=== PATIENT | male | born 1945 | race Caucasian/White ===

== ENCOUNTER → 2016-10-16 | Day surgery (SDC) | payer OTHER ==
[~2016-10-16] VITALS: Ht 167.6 cm; Wt 75.1 kg
[~2016-10-16] MED LIST: ACETAMINOPHEN 1000 MG/100 ML VIAL IV ONE; ATOR10TA15 PO; CEFT2INJ IV; DO NOT ADM ANY ANTICOAGULANT DRUGS XX PRN; EPIN1INJ21 IV PUSH; EPIN1INJ21 SQ; INSULIN HUMAN REGULAR 1,000 UNITS/10 ML VIAL SQ PRN; LACTATED RINGER'S 1000 ML IV SCH; LEVA500T PO; LEVO500T3 PO; LEVOFLOXACIN 500 MG PREMIX INJ 100 ML IV SCH; LORA-361 PO; METO25TA3 PO; METOPROLOL TARTRATE 25 MG TAB PO PRN; ONDANSETRON HCL 4 MG/2 ML VIAL IV PUSH PRN; PROPOFOL 200 MG/20 ML AMP IV ONE; REFR0.5D4 EACH EYE; SODIUM CHLORID 0.9% 500 ML IV SCH; SOLU250I IV PUSH; TAMS5CAP PO; oxyCODONE/ACETAMINOPHEN 5 MG/325 MG TAB PO PRN
[2016-10-16 06:54] VITALS: BP 131/74; PULSE 53; RESP 16; TEMP 97.7; O2SAT 97
[2016-10-16 07:08] LABS: AUTOMATED NEUTROPHIL # 3.8 TH/MM3 (1.8-7.7); BASOPHIL % 0.5 % (0.0-2.0); EOSINOPHIL # 0.2 TH/MM3 (0-0.4); EOSINOPHIL % 3.3 % (0.0-4.0); HEMATOCRIT 40.1 % (39.0-51.0); HEMO FLAGS DIFF FINAL; LYMPH % 30.6 % (9.0-44.0); LYMPHOCYTE # 2.1 TH/MM3 (1.0-4.8); MEAN CELL VOLUME 88.4 FL (80.0-100.0); MEAN CORPUSCULAR HEMOGLOBIN 30.7 PG (27.0-34.0); MEAN CORPUSCULAR HGB CONC 34.7 % (32.0-36.0); MONO % 9.3 % (0.0-8.0); NEUT % 56.3 % (16.0-70.0); PLATELET COUNT 147 TH/MM3 (150-450); RED BLOOD COUNT 4.53 MIL/MM3 (4.50-5.90); RED CELL DISTRIBUTION WIDTH 13.7 % (11.6-17.2); WHITE BLOOD COUNT 6.8 TH/MM3 (4.0-11.0)
[2016-10-16 10:15] VITALS: BP 142/83; PULSE 53; RESP 16; TEMP 97; O2SAT 98
--- NOTE | 2016-10-21 11:05 | MP ---
cc: HIGINIO TAN MD DATE OF SURGERY: 10/16/2016 INDICATION FOR PROCEDURE This is the case of a pleasant 71-year-old gentleman with PSA elevation measuring 6.9 and induration of his prostate involving the left side on digital rectal exam. The patient presents today for a transrectal ultrasound and transrectal ultrasound-guided needle biopsies of the prostate to rule out prostate cancer PREOPERATIVE DIAGNOSIS PSA elevation. POSTOPERATIVE DIAGNOSIS PSA elevation. 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 PROCEDURES PERFORMED Transrectal ultrasound of the prostate and transrectal ultrasound-guided needle biopsies of the prostate x12. COMPLICATIONS None. ESTIMATED BLOOD LOSS None. SPECIMENS 12 needle biopsies of the prostate sent off to pathology. OPERATIVE PROCEDURE IN DETAIL The patient was brought to the operating room suite and left on the stretcher. He was then placed under general anesthesia. He was then repositioned in the left lateral recumbent position. After an appropriate timeout was undertaken I proceeded with performing a transrectal ultrasound of the prostate. Multiple images of the prostate were taken. The total volume was 36 cc. There were no hypoechoic areas noted. There was a nodular appearance to the left apex as felt on digital rectal exam. I then proceeded with 12 needle biopsies of the prostate utilizing ultrasound guidance. I initially started on the right side. Two biopsies were taken from the right base, two biopsies from the mid gland and two biopsies from the apex of the gland. I then proceeded with six additional biopsies on the left side in similar fashion. I made certain that at least one of the biopsies involved the left apex, went through the nodular site. Once all the biopsies were taken the transrectal probe was left indwelling for approximately two minutes for hemostasis and subsequently withdrawn. The patient tolerated the procedures without complications and was transferred to the PACU in satisfactory condition. Higinio Tan MD BPS/BT /8:51 AM /10:54 AM
== END | disposition home or self-care (01) ==
LOC: HSDC 06:09
PROVIDERS: ATTEND Urology
DX: C61 Malignant neoplasm of prostate (principal); I10 Essential (primary) hypertension
CPT/HCPCS: 00910; 55705; 85025; 88305; J0131; J1956; J7120

== ENCOUNTER 2016-10-17 23:36 | Inpatient (IN) | payer MEDICARE, OTHER ==
[~2016-10-17] VITALS: Ht 170.2 cm; Wt 73.0 kg
[~2016-10-17 23:36] MED LIST changes: -ACETAMINOPHEN 1000 MG/100 ML VIAL IV ONE; -CEFT2INJ IV; -DO NOT ADM ANY ANTICOAGULANT DRUGS XX PRN; -EPIN1INJ21 IV PUSH; -EPIN1INJ21 SQ; -INSULIN HUMAN REGULAR 1,000 UNITS/10 ML VIAL SQ PRN; -LACTATED RINGER'S 1000 ML IV SCH; -LEVO500T3 PO; -LEVOFLOXACIN 500 MG PREMIX INJ 100 ML IV SCH; -LORA-361 PO; -METOPROLOL TARTRATE 25 MG TAB PO PRN; -ONDANSETRON HCL 4 MG/2 ML VIAL IV PUSH PRN; -PROPOFOL 200 MG/20 ML AMP IV ONE; -REFR0.5D4 EACH EYE; -SODIUM CHLORID 0.9% 500 ML IV SCH; -SOLU250I IV PUSH; -TAMS5CAP PO; -oxyCODONE/ACETAMINOPHEN 5 MG/325 MG TAB PO PRN
[2016-10-17 23:41] VITALS: BP 123/66; PULSE 101; RESP 16; TEMP 99.1; O2SAT 97
[2016-10-17] MEDS ORDERED: LEVO500T3 PO (23:50)
[2016-10-18] VITALS (11 sets, daily range): BP systolic 95–118; BP diastolic 55–69; PULSE 68–105; RESP 16–20; TEMP 97.9–102.8; O2SAT 95–98
--- NOTE | 2016-10-18 01:26 | PD ---
HPI Chief Complaint: Fever Time Seen by Provider: 01:14 Travel History International Travel<30 days: No Contact w/Intl Traveler<30days: No Traveled to known affect area: No History of Present Illness HPI 71-year-old male complains of fever chills and hematuria. Patient status post prostate biopsy yesterday by Dr. Tan. Patient started having fever since last night. Patient started having hematuria today. Patient denies any states that he has mild aching headache. Patient denies any neck pain. Patient denies any chest pain or shortness of breath. Patient denies any coughing congestion. Patient denies abdominal pain. Patient denies any groin pain. Patient denies any back pain. Patient denies any focal weakness or numbness of extremity. Patient was given prescription for Levaquin and has been taking it since yesterday. PFSH Past Medical History Cancer: No Cardiovascular Problems: No High Cholesterol: Yes Chest Pain: No Diabetes: No Endocrine: No Gastrointestinal Disorders: No Glaucoma: No Genitourinary: No Hepatitis: No Hiatal Hernia: No Hypertension: Yes Immune Disorder: No Musculoskeletal: No Neurologic: No Psychiatric: No Respiratory: No Integumentary: No Thyroid Disease: No Past Surgical History Abdominal Surgery: Yes (MARY., ) AICD: No Cholecystectomy: Yes Eye Surgery: Yes (LEFT EYE?) Joint Replacement: No Pacemaker: No Social History Alcohol Use: No Tobacco Use: No Substance Use: No Allergies-Medications (Allergen,Severity, Reaction): Coded Allergies: No Known Allergies (Unverified , 10/17/16) Reported Meds & Prescriptions Reported Meds & Active Scripts Active Reported Levofloxacin 500 Mg Tab 500 Mg PO DAILY Atorvastatin (Atorvastatin Calcium) 10 Mg Tab 10 Mg PO HS Metoprolol Tartrate 25 Mg Tab 12.5 Mg PO BID Review of Systems General / Constitutional: Positive: Fever, Chills Eyes: No: Visual changes HENT: No: Headaches Cardiovascular: No: Chest Pain or Discomfort Respiratory: No: Shortness of Breath Gastrointestinal: No: Abdominal Pain Genitourinary: Positive: Hematuria, No: Dysuria Musculoskeletal: No: Pain Skin: No Rash Neurologic: No: Weakness Psychiatric: No: Depression Endocrine: No: Polydipsia Hematologic/Lymphatic: No: Easy Bruising Physical Exam Narrative GENERAL: Well-nourished, well-developed patient. SKIN: Warm and dry. HEAD: Normocephalic. EYES: No scleral icterus. No injection or drainage. NECK: Supple, trachea midline. No JVD or lymphadenopathy. CARDIOVASCULAR: Regular rate and rhythm without murmurs, gallops, or rubs. RESPIRATORY: Breath sounds equal bilaterally. No accessory muscle use. GASTROINTESTINAL: Abdomen soft, non-tender, nondistended. MUSCULOSKELETAL: No cyanosis, or edema. BACK: Nontender without obvious deformity. No CVA tenderness. Neurologic exam normal. Data Data Last Documented VS Vital Signs Date Time Temp Pulse Resp B/P Pulse Ox O2 Delivery O2 Flow Rate FiO2 10/18/16 01:41 105 20 96 Nasal Cannula 3 10/17/16 23:41 99.1 123/66 Orders Electrocardiogram (10/18/16 01:19) Complete Blood Count With Diff (10/18/16 01:19) Comprehensive Metabolic Panel (10/18/16 01:19) Prothrombin Time / Inr (Pt) (10/18/16 01:19) Act Partial Throm Time (Ptt) (10/18/16 01:19) Blood Culture (10/18/16 01:19) Urinalysis - C+S If Indicated (10/18/16 01:19) Chest, Single Ap (10/18/16 01:19) Iv Access Insert/Monitor (10/18/16 01:19) Ecg Monitoring (10/18/16 01:19) Oximetry (10/18/16 01:19) Lactic Acid (10/18/16 01:19) Sodium Chlor 0.9% 1000 Ml Inj (Ns 1000 M (10/18/16 01:30) Piperacil-Tazo 3.375 Gm Premix (Zosyn 3. (10/18/16 01:30) Vancomycin Inj (Vancomycin Inj) (10/18/16 01:30) Urine Culture (10/18/16 01:30) Sodium Chlor 0.9% 1000 Ml Inj (Ns 1000 M (10/18/16 02:30) Acetaminophen (Tylenol) (10/18/16 02:30) Labs Laboratory Tests Test 10/18/16 01:30 White Blood Count 11.7 TH/MM3 Red Blood Count 4.38 MIL/MM3 Hemoglobin 13.4 GM/DL Hematocrit 38.9 % Mean Corpuscular Volume 88.8 FL Mean Corpuscular Hemoglobin 30.7 PG Mean Corpuscular Hemoglobin 34.5 % Concent Red Cell Distribution Width 13.7 % Platelet Count 103 TH/MM3 Mean Platelet Volume 8.5 FL Neutrophils (%) (Auto) 97.3 % Lymphocytes (%) (Auto) 1.8 % Monocytes (%) (Auto) 0.4 % Eosinophils (%) (Auto) 0.0 % Basophils (%) (Auto) 0.5 % Neutrophils # (Auto) 11.4 TH/MM3 Lymphocytes # (Auto) 0.2 TH/MM3 Monocytes # (Auto) 0.0 TH/MM3 Eosinophils # (Auto) 0.0 TH/MM3 Basophils # (Auto) 0.1 TH/MM3 CBC Comment AUTO DIFF Differential Comment AUTO DIFF CONFIRMED Prothrombin Time 12.9 SEC Prothromb Time International 1.2 RATIO Ratio Activated Partial 28.1 SEC Thromboplast Time Urine Color RED Urine Turbidity HAZY Urine pH 6.0 Urine Specific [place] 1.019 Urine Protein 30 mg/dL Urine Glucose (UA) NEG mg/dL Urine Ketones TRACE mg/dL Urine Occult Blood MOD Urine Nitrite NEG Urine Bilirubin NEG Urine Urobilinogen LESS THAN 2.0 MG/DL Urine Leukocyte Esterase MOD Urine RBC /hpf Urine WBC 46 /hpf Urine Mucus FEW /lpf Microscopic Urinalysis Comment CULTURE INDICATED Sodium Level 139 MEQ/L Potassium Level 3.7 MEQ/L Chloride Level 107 MEQ/L Carbon Dioxide Level 22.9 MEQ/L Anion Gap 9 MEQ/L Blood Urea Nitrogen 21 MG/DL Creatinine 1.33 MG/DL Estimat Glomerular Filtration 53 ML/MIN Rate Random Glucose 105 MG/DL Lactic Acid Level 1.7 mmol/L Calcium Level 7.6 MG/DL Total Bilirubin 1.1 MG/DL Aspartate Amino Transf 112 U/L (AST/SGOT) Alanine Aminotransferase 111 U/L (ALT/SGPT) Alkaline Phosphatase 80 U/L Total Protein 6.3 GM/DL Albumin 2.9 GM/DL [facility] Medical Decision Making Medical Screen Exam Complete: Yes Emergency Medical Condition: Yes Interpretation(s) 2:57 AM. Chest x-ray show left basilar atelectasis versus airspace disease. CBC WBC 11.7. Hemoglobin 13.4 hematocrit 30.9. 97 neutrophil. BUN 21. Creatinine 1.33. GFR 53. Calcium 7.6. Total bili 1.1. AST 112. ALT 111. UA positive for RBC, WBC. Differential Diagnosis Differential diagnosis including sepsis, URI, pneumonia, UTI, pyelonephritis Narrative Course 71-year-old male with fever chills and hematuria. Status post prostate biopsy yesterday. Normal saline solution 1 L IV bolus. Zosyn 3.375 g IV. Vancomycin 1 g IV. Diagnosis Primary Impression: Pneumonia Qualified Code: J18.1 - Pneumonia of left lower lobe due to infectious organism Additional Impressions: Hematuria Sepsis Qualified Code: A41.9 - Sepsis, due to unspecified organism Blaze Combs MD Oct 18, 2016 01:26
[2016-10-18] MEDS ORDERED: VANCOMYCIN INJ 1,000 MG in SODIUM CHLOR 0.9% 250 ML INJ 250 ML IV ONE (01:30)
[2016-10-18] MEDS ORDERED: SODIUM CHLOR 0.9% 1000 ML INJ 1,000 ML IV ONE ×2 (01:30→02:30)
[2016-10-18] MEDS ORDERED: PIPERACIL-TAZO 3.375 GM PREMIX 50 ML IV ONE (01:30)
[2016-10-18 01:47] LABS: AUTOMATED NEUTROPHIL # 11.4 TH/MM3 (1.8-7.7); BASOPHIL # 0.1 TH/MM3 (0-0.2); BASOPHIL % 0.5 % (0.0-2.0); HEMATOCRIT 38.9 % (39.0-51.0); LYMPH % 1.8 % (9.0-44.0); LYMPHOCYTE # 0.2 TH/MM3 (1.0-4.8); MEAN CELL VOLUME 88.8 FL (80.0-100.0); MEAN CORPUSCULAR HEMOGLOBIN 30.7 PG (27.0-34.0); MEAN CORPUSCULAR HGB CONC 34.5 % (32.0-36.0); MONO % 0.4 % (0.0-8.0); NEUT % 97.3 % (16.0-70.0); PLATELET COUNT 103 TH/MM3 (150-450); RED BLOOD COUNT 4.38 MIL/MM3 (4.50-5.90); RED CELL DISTRIBUTION WIDTH 13.7 % (11.6-17.2); WHITE BLOOD COUNT 11.7 TH/MM3 (4.0-11.0)
[2016-10-18 01:51] LABS: HEMO FLAGS AUTO DIFF
[2016-10-18 01:58] LABS: BLOOD, URINE MOD (NEG); COMMENT (UR) CULTURE INDICATED; CULTURE IF INDICATED CULTURE INDICATED; GLUCOSE,URINE NEG (NEG); KETONE, URINE TRACE mg/dL (NEG); MUCUS URINE FEW /lpf (OCC); NITRITE,URINE NEG (NEG); URINE COLOR RED (YELLW/STRAW)
[2016-10-18 02:11] LABS: ALT (GPT) 111 U/L (12-78); ANION GAP 9 MEQ/L (5-15); AST (GOT) 112 U/L (15-37); BICARBONATE 22.9 MEQ/L (21.0-32.0); BLOOD UREA NITROGEN 21 MG/DL (7-18); CHLORIDE 107 MEQ/L (98-107); GLOMERULAR FILTRATION RATE 53 ML/MIN (>89); POTASSIUM 3.7 MEQ/L (3.5-5.1); SODIUM (NA) 139 MEQ/L (136-145)
[2016-10-18 02:13] LABS: ALKALINE PHOSPHATASE 80 U/L (45-117); TOTAL BILIRUBIN ADULT 1.1 MG/DL (0.2-1.0)
--- NOTE | 2016-10-18 02:13 | RADRPT ---
EXAM DATE/TIME: 10/18/2016 02:05 [place] COMPARISON: No previous studies available for comparison. INDICATIONS : Fever. MEDICAL HISTORY : None. SURGICAL HISTORY : None. ENCOUNTER: Initial ACUITY: 1 day PAIN SCORE: 0/10 LOCATION: Bilateral chest FINDINGS: There is atelectasis or developing airspace disease at the left lung base. Right lung is clear. Heart size mildly enlarged. Calcified granuloma suspected in the left lung base. CONCLUSION: Left basilar atelectasis versus developing airspace disease. Bolivar Crocker MD on October 18, 2016 at 2:10 Board Certified Radiologist. This report was verified electronically.
[2016-10-18 02:26] LABS: APTT (PATIENT) 28.1 SEC (24.3-30.1); INTERNATIONAL NORMALIZED RATIO 1.2 RATIO; PROTHROMBIN TIME - PATIENT 12.9 SEC (9.8-11.6)
[2016-10-18] MEDS ORDERED: ACETAMINOPHEN 325 MG TAB PO ONE (02:30)
[2016-10-18 02:34] LABS: SCAN/DIFF AUTO DIFF CONFIRMED
[2016-10-18] MEDS ORDERED: VANCOMYCIN INJ 1,000 MG in SODIUM CHLOR 0.9% 250 ML INJ 250 ML IV SCH (03:15)
[2016-10-18] MEDS ORDERED: SODIUM CHLORIDE 0.9% FLUSH 5 ML FLUSH IVF PRN (03:15)
[2016-10-18] MEDS ORDERED: ONDANSETRON HCL 4 MG/2 ML VIAL IV PRN (03:15)
[2016-10-18] MEDS: SODIUM CHLOR 0.9% 1000 ML INJ 1,000 ML IV SCH ×3 (03:45→13:07)
[2016-10-18] MEDS: PIPERACIL-TAZO 3.375 GM PREMIX 50 ML IV SCH ×2 (10:27→18:15)
[2016-10-18] MEDS: SODIUM CHLORIDE 0.9% FLUSH 5 ML FLUSH IVF SCH ×2 (10:27→20:20)
--- NOTE | 2016-10-18 11:18 | HHI.PR ---
Objective Vitals Vital Signs Date Time Temp Pulse Resp B/P Pulse Ox O2 Delivery O2 Flow Rate FiO2 10/18/16 08:34 97.9 69 19 95/57 97 10/18/16 06:20 98.8 83 18 108/56 95 10/18/16 03:31 96 Nasal Cannula 3.00 10/18/16 03:23 96 16 118/69 96 Nasal Cannula 3 10/18/16 01:41 105 20 96 Nasal Cannula 3 10/17/16 23:46 102 10/17/16 23:41 99.1 101 16 123/66 97 Result Diagram: 10/18/1612910/18/16129 Stephen Lucero MD Oct 18, 2016 11:18
--- NOTE | 2016-10-18 11:35 | HHI.HP ---
HPI Service [facility] Hospitalists Primary Care Physician Selam Figueroa MD Admission Diagnosis Hematuria. Sepsis. Renal sufficiency. Chief Complaint: blood in urine Travel History International Travel<30 Days: No Contact w/Intl Traveler <30 Da: No Traveled to Known Affected Are: No History of Present Illness Pt is 71 yo who underwent prostate bx 10/16 apparently for elevated psa Last night developed rigors and high fever. he was on levaquin. also he deveploped hematuria. He was found to have elevated wbc, cr, lft,low plts.currently his hematuria is resolving. Given vanco and zosyn in ED. ED thought possibly pna based on cxr. pt denies cough/sob. did have some sneezing this AM and family says he was out in cold rain last night. Pt speaks mostly georgian. his daughter was on phone interpreting and also some family in room interpreting. denies etoh use or cigarette use. Review of Systems Other fever blood in urine Past Family Social History Past Medical History elevated psa nonobstructive cad cholecystectomy Reported Medications Levofloxacin 500 Mg Tab 500 Mg PO DAILY Atorvastatin (Atorvastatin Calcium) 10 Mg Tab 10 Mg PO HS Metoprolol Tartrate 25 Mg Tab 12.5 Mg PO BID Allergies: Coded Allergies: No Known Allergies (Unverified , 10/17/16) Family History nc Social History denies etoh/tob Physical Exam Vital Signs nad heart reg lung cta abd s/nt ext no edema Vital Signs Date Time Temp Pulse Resp B/P Pulse Ox O2 Delivery O2 Flow Rate FiO2 10/18/16 08:34 97.9 69 19 95/57 97 10/18/16 06:20 98.8 83 18 108/56 95 10/18/16 03:31 96 Nasal Cannula 3.00 10/18/16 03:23 96 16 118/69 96 Nasal Cannula 3 10/18/16 01:41 105 20 96 Nasal Cannula 3 10/17/16 23:46 102 10/17/16 23:41 99.1 101 16 123/66 97 Laboratory Laboratory Tests Test 10/18/16 01:30 White Blood Count 11.7 Red Blood Count 4.38 Hemoglobin 13.4 Hematocrit 38.9 Mean Corpuscular Volume 88.8 Mean Corpuscular Hemoglobin 30.7 Mean Corpuscular Hemoglobin 34.5 Concent Red Cell Distribution Width 13.7 Platelet Count 103 Mean Platelet Volume 8.5 Neutrophils (%) (Auto) 97.3 Lymphocytes (%) (Auto) 1.8 Monocytes (%) (Auto) 0.4 Eosinophils (%) (Auto) 0.0 Basophils (%) (Auto) 0.5 Neutrophils # (Auto) 11.4 Lymphocytes # (Auto) 0.2 Monocytes # (Auto) 0.0 Eosinophils # (Auto) 0.0 Basophils # (Auto) 0.1 CBC Comment AUTO DIFF Differential Comment AUTO DIFF CONFIRMED Prothrombin Time 12.9 Prothromb Time International 1.2 Ratio Activated Partial 28.1 Thromboplast Time Urine Color RED Urine Turbidity HAZY Urine pH 6.0 Urine Specific [place] 1.019 Urine Protein 30 Urine Glucose (UA) NEG Urine Ketones TRACE Urine Occult Blood MOD Urine Nitrite NEG Urine Bilirubin NEG Urine Urobilinogen LESS THAN 2.0 Urine Leukocyte Esterase MOD Urine RBC Urine WBC 46 Urine Mucus FEW Microscopic Urinalysis Comment CULTURE INDICATED Sodium Level 139 Potassium Level 3.7 Chloride Level 107 Carbon Dioxide Level 22.9 Anion Gap 9 Blood Urea Nitrogen 21 Creatinine 1.33 Estimat Glomerular Filtration 53 Rate Random Glucose 105 Lactic Acid Level 1.7 Calcium Level 7.6 Total Bilirubin 1.1 Aspartate Amino Transf 112 (AST/SGOT) Alanine Aminotransferase 111 (ALT/SGPT) Alkaline Phosphatase 80 Total Protein 6.3 Albumin 2.9 Date/Time Procedure Status Source Growth 10/18/16 01:35 Aerobic Blood Culture Received Blood Peripheral Pending 10/18/16 01:35 Anaerobic Blood Culture Received Blood Peripheral Pending 10/18/16 01:30 Urine Culture Received Urine Clean Catch Pending Result Diagram: 10/18/16 0130 10/18/16 0130 Assessment and Plan Problem List: (1) Fever Status: Acute Plan: --Pt is 71 yo who underwent prostate bx 10/16 apparently for elevated psa --Last night developed rigors and high fever. he was on levaquin. also he deveploped hematuria. --He was found to have elevated wbc, cr, lft,low plts. --currently his hematuria is resolving. elevated psa s/p bx 10/16 hematuria related to the prostate bx..resolving acute fever/rigors...r/o uti/sepsis. no clear pna sx's elevation of lft and thrombocytopenia may be infection related. but he his his plt were low prior to bx. denies hx etoh or hepatitis. he is on statin for nonobstructive cad. ethan probably related to above. will hold statin ivf recheck cr, lft, plt tomorrow. further w/up as needed. monitor urine and blood cx today cont abx. urology to see pt today. Pt speaks mostly georgian. his daughter was on phone interpreting and also some family in room interpreting. (2) Hematuria Status: Acute Plan: see above (3) ETHAN (acute kidney injury) Status: Acute Plan: see above (4) LFT elevation Status: Acute Plan: see above (5) Thrombocytopenia Status: Acute Plan: see above Physician Certification 2 Midnight Certification Type: Admission for Inpatient Services Order for Inpatient Services 2The services are ordered in accordance with Medicare regulations or non- Medicare payer requirements, as applicable. In the case of services not specified as inpatient-only, they are appropriately provided as inpatient services in accordance with the 2-midnight benchmark. Estimated LOS (days): 2 2 days is the estimated time the patient will need to remain in the hospital, assuming treatment plan goals are met and no additional complications. Post-Hospital Plan: Home Stephen Lucero MD Oct 18, 2016 11:35
[2016-10-18] MEDS ORDERED: LORATADINE 10 MG TAB PO ONE (12:00)
--- NOTE | 2016-10-18 12:33 | EKG ---
Date Performed: 10/18/2016 Time Performed: 01:25:21 PTAGE: 71 years EKG: SINUS TACHYCARDIA POSSIBLE LEFT ATRIAL ENLARGEMENT RIGHT BUNDLE BRANCH BLOCK MODERATE T-WAV E ABNORMALITY, CONSIDER ANTEROLATERAL ISCHEMIA ABNORMAL ECG PREVIOUS TRACING : 07/15/2016 13.57 Compared to previous tracing, the rate is faster, right bun dle branch block is now present, and there has been an accentuation of anterior T-wave changes. DOCTOR: Demarcus Tsai Interpretating Date/Time 10/18/2016 12:31:08
--- NOTE | 2016-10-18 14:12 | MB ---
cc: GAGANDEEP LOPEZ DATE OF CONSULTATION: 10/18/2016 HISTORY OF PRESENT ILLNESS: The patient is a 71 year-old male under the care of Dr. Tan. He underwent a prostate needle biopsy on 10/16/2016 for elevation of his PSA. Last night I received a phone call from the patient who was complaining of fever, chills and rigors. He was still on his course of Levaquin post procedure but it appeared that he started to develop some sepsis and it was recommended for him to come into the emergency room. PAST MEDICAL HISTORY: Elevated PSA. Heart disease PAST SURGICAL HISTORY: Cholecystectomy. FAMILY HISTORY: Denies any family history of prostate cancer. SOCIAL HISTORY: Denies smoking or drinking at present. ALLERGIES: NONE KNOWN. MEDICATIONS: Please refer to the chart. REVIEW OF SYSTEMS: He denies chest pain, shortness of breath, denies gait disturbances, bleeding disorder. Denies skin rash, heat or cold intolerance, psychiatric problems such as depression, anxiety. Denies headache, syncopal episode. PHYSICAL EXAMINATION: VITAL SIGNS: Temperature 98.2, heart rate 72, respiratory rate 19, 102/56. GENERAL: He is well-developed, well-nourished 71-year-old male in no acute distress. HEENT: Normocephalic, atraumatic. Pupils equal, round, react to light. Extraocular movements intact. NECK: Supple. HEART: Regular rate and rhythm. LUNGS: Clear. ABDOMEN: Soft, non-tender, non-distended. : Normal phallus. Testes are descended. EXTREMITIES: No cyanosis, clubbing or edema. LABORATORY DATA: White count 11.7, hemoglobin 13.4, hematocrit 38.9, platelet count 103. Sodium 139, potassium 3.7, chloride 107, CO2 22.9, BUN of 21, creatinine 1.3, glucose of 105. PT is 12.9, INR is 1.2 and PTT is 28.1. Urinalysis shows moderate leukoesterase was numerous red cells and 46 white cells. Culture both blood and urine are presently pending. X-RAYS: Chest x-ray by report demonstrates left basilar atelectasis versus airspace disease. ASSESSMENT: The patient is a 71-year-old male with the development of fever and chills with rigors, status post prostate needle biopsy. Urine culture and blood cultures currently pending. Continue IV antibiotics. Will follow with you. Thank you for the consultation and allowing me to participate in the care of this patient. ADDENDUM REVIEW OF SYSTEMS A complete review of systems was obtained and all other systems are negative except per the HPI. Clayton POWELL /1:27 PM /2:20 PM
[2016-10-18] MEDS: ACETAMINOPHEN 325 MG TAB PO PRN (15:47)
[2016-10-18] MEDS: VANCOMYCIN INJ 1,000 MG in SODIUM CHLOR 0.9% 250 ML INJ 250 ML IV SCH (15:48)
[2016-10-19] VITALS (11 sets, daily range): BP systolic 98–133; BP diastolic 55–73; PULSE 58–70; RESP 18; TEMP 98.1–100.1; O2SAT 95–99
[2016-10-19] MEDS: ACETAMINOPHEN 325 MG TAB PO PRN (00:01)
[2016-10-19] MEDS: PIPERACIL-TAZO 3.375 GM PREMIX 50 ML IV SCH ×3 (02:15→17:33)
[2016-10-19] MEDS: VANCOMYCIN INJ 1,000 MG in SODIUM CHLOR 0.9% 250 ML INJ 250 ML IV SCH ×2 (02:55→14:49)
[2016-10-19] MEDS: SODIUM CHLOR 0.9% 1000 ML INJ 1,000 ML IV SCH ×2 (02:55→14:49)
[2016-10-19 06:36] LABS: BASOPHIL % 0.4 % (0.0-2.0); EOSINOPHIL % 0.4 % (0.0-4.0); HEMATOCRIT 35.4 % (39.0-51.0); LYMPH % 13.5 % (9.0-44.0); LYMPHOCYTE # 1.4 TH/MM3 (1.0-4.8); MEAN CELL VOLUME 89.5 FL (80.0-100.0); MEAN CORPUSCULAR HEMOGLOBIN 30.8 PG (27.0-34.0); MEAN CORPUSCULAR HGB CONC 34.4 % (32.0-36.0); MONO % 6.6 % (0.0-8.0); NEUT % 79.1 % (16.0-70.0); PLATELET COUNT 84 TH/MM3 (150-450); RED BLOOD COUNT 3.96 MIL/MM3 (4.50-5.90); RED CELL DISTRIBUTION WIDTH 14.1 % (11.6-17.2); WHITE BLOOD COUNT 10.2 TH/MM3 (4.0-11.0)
[2016-10-19 06:45] LABS: HEMO FLAGS AUTO DIFF
[2016-10-19 07:00] LABS: BICARBONATE 20.6 MEQ/L (21.0-32.0); INDIRECT BILIRUBIN 0.4 MG/DL (0.0-0.8); POTASSIUM 3.7 MEQ/L (3.5-5.1); TOTAL BILIRUBIN ADULT 0.9 MG/DL (0.2-1.0)
[2016-10-19 07:46] LABS: CALCIUM-PROTEIN CORRECTED 7.9 MG/DL (8.5-10.1)
[2016-10-19 08:26] LABS: PLATELET ESTIMATE SMEAR LOW (NORMAL); PLATELET MORPHOLOGY NORMAL (NORMAL)
[2016-10-19 08:27] LABS: SCAN/DIFF AUTO DIFF CONFIRMED
--- NOTE | 2016-10-19 08:34 | HHI.PR ---
Subjective Remarks Pt seen and examined. Fever last PM at 100.1; otherwise no complaints. Objective Vital Signs Vital Signs Date Time Temp Pulse Resp B/P Pulse Ox O2 Delivery O2 Flow Rate FiO2 10/19/16 04:00 98.1 58 18 100/59 97 10/19/16 01:49 98.5 100/57 10/19/16 00:00 100.1 70 18 98/57 96 10/18/16 23:55 102.8 10/18/16 20:00 98.0 68 17 102/55 96 10/18/16 20:00 72 10/18/16 16:17 100.6 76 18 108/58 96 10/18/16 12:15 98.2 72 19 102/56 98 10/18/16 12:05 74 10/18/16 08:34 97.9 69 19 95/57 97 I/O 10/18/16 10/18/16 10/18/16 10/19/16 10/19/16 10/19/16 07:00 15:00 23:00 07:00 15:00 23:00 Intake Total 1510 ml 120 ml 1323 ml Output Total 550 ml 300 ml 300 ml Balance 960 ml -180 ml 1023 ml Intake Oral 480 ml 120 ml 240 ml IV Total 1030 ml 1083 ml Output Urine Total 550 ml 300 ml 300 ml # Bowel Movements 0 2 Result Diagram: 10/19/16 0532 10/19/16 0532 Objective Remarks Abd:soft,nt,nd Voiding well; urine clear Assessment and Plan Assessment and Plan 71 y.o male s/p PNBX with fever Cultures pending Clayton Bai DO Oct 19, 2016 08:34
[2016-10-19] MEDS: SODIUM CHLORIDE 0.9% FLUSH 5 ML FLUSH IVF SCH ×2 (09:00→21:00)
[2016-10-19] MEDS: LORATADINE 10 MG TAB PO SCH (09:12)
--- NOTE | 2016-10-19 15:06 | HHI.PR ---
Subjective Remarks No new complaints. Good PO intake. Objective Vitals Vital Signs Date Time Temp Pulse Resp B/P Pulse Ox O2 Delivery O2 Flow Rate FiO2 10/19/16 12:00 98.5 62 18 107/62 97 10/19/16 09:21 97 21 10/19/16 08:04 99.0 63 18 104/55 95 10/19/16 08:00 62 10/19/16 04:00 98.1 58 18 100/59 97 10/19/16 01:49 98.5 100/57 10/19/16 00:00 100.1 70 18 98/57 96 10/18/16 23:55 102.8 10/18/16 20:00 98.0 68 17 102/55 96 10/18/16 20:00 72 10/18/16 16:17 100.6 76 18 108/58 96 10/18/16 10/18/16 10/19/16 15:00 23:00 07:00 Intake Total 1510 ml 120 ml 1323 ml Output Total 550 ml 300 ml 300 ml Balance 960 ml -180 ml 1023 ml Intake Oral 480 ml 120 ml 240 ml IV Total 1030 ml 1083 ml Output Urine Total 550 ml 300 ml 300 ml # Bowel Movements 0 2 Result Diagram: 10/19/16 0532 10/19/16 0532 Imaging Last Impressions Chest X-Ray 10/18/16 0119 Signed Impressions: Service Date/Time: Tuesday, October 18, 2016 02:05 - CONCLUSION: Left basilar atelectasis versus developing airspace disease. Bolivar Crocker MD Objective Remarks GENERAL: This is a well-nourished, well-developed patient, in no apparent distress. CARDIOVASCULAR: Regular rate and rhythm without murmurs, gallops, or rubs. RESPIRATORY: Clear to auscultation. Breath sounds equal bilaterally. No wheezes , rales, or rhonchi. GASTROINTESTINAL: Abdomen soft, non-tender, nondistended. Normal active bowel sounds MUSCULOSKELETAL: Extremities without clubbing, cyanosis, or edema. NEURO: Alert & Oriented x4 to person, place, time, situation. Moves all ext x4 A/P Problem List: (1) Fever Status: Acute Plan: --Pt is 71 yo who underwent prostate bx 10/16 apparently for elevated psa --Last night developed rigors and high fever. he was on levaquin. also he deveploped hematuria. --He was found to have elevated wbc, cr, lft,low plts. --currently his hematuria is resolving. elevated psa s/p bx 10/16 hematuria related to the prostate bx..resolving acute fever/rigors...r/o uti/sepsis. no clear pna sx's elevation of lft and thrombocytopenia may be infection related. but he his his plt were low prior to bx. denies hx etoh or hepatitis. he is on statin for nonobstructive cad. ethan probably related to above. will hold statin ivf recheck cr, lft, plt tomorrow. further w/up as needed. monitor urine and blood cx today cont abx. urology to see pt today. Pt speaks mostly yoruba. his daughter was on phone interpreting and also some family in room interpreting. 10/19/16 - Tmax = 100.1 at [place] 10/19 - blood cx (10/18/16) --> 1 bottle aerobic --> EColi 2 bottles anerobic --> gram negative rods - continue vancomycin and zosyn for now - will d/w ID - follow cultures (2) Hematuria Status: Acute Plan: see above (3) ETHAN (acute kidney injury) Status: Acute Plan: see above (4) LFT elevation Status: Acute Plan: see above (5) Thrombocytopenia Status: Acute Plan: see above Problem Qualifiers (1) Fever: Qualified Code: R50.82 - Post-procedural fever Bull Cao DO Oct 19, 2016 15:05
[2016-10-20] MEDS: PIPERACIL-TAZO 3.375 GM PREMIX 50 ML IV SCH ×3 (02:33→17:26)
[2016-10-20] MEDS: VANCOMYCIN INJ 1,000 MG in SODIUM CHLOR 0.9% 250 ML INJ 250 ML IV SCH ×2 (03:03→14:47)
[2016-10-20 03:25] VITALS: BP 119/73; PULSE 65; RESP 18; TEMP 99; O2SAT 96
[2016-10-20 06:56] LABS: AUTOMATED NEUTROPHIL # 6.3 TH/MM3 (1.8-7.7); BASOPHIL # 0.1 TH/MM3 (0-0.2); BASOPHIL % 0.8 % (0.0-2.0); EOSINOPHIL # 0.2 TH/MM3 (0-0.4); EOSINOPHIL % 1.7 % (0.0-4.0); HEMATOCRIT 37.7 % (39.0-51.0); LYMPH % 15.4 % (9.0-44.0); LYMPHOCYTE # 1.3 TH/MM3 (1.0-4.8); MEAN CELL VOLUME 89.1 FL (80.0-100.0); MEAN CORPUSCULAR HEMOGLOBIN 30.3 PG (27.0-34.0); MONO % 8.9 % (0.0-8.0); NEUT % 73.2 % (16.0-70.0); PLATELET COUNT 94 TH/MM3 (150-450); RED BLOOD COUNT 4.23 MIL/MM3 (4.50-5.90); RED CELL DISTRIBUTION WIDTH 14.3 % (11.6-17.2); WHITE BLOOD COUNT 8.7 TH/MM3 (4.0-11.0)
[2016-10-20 07:00] LABS: HEMO FLAGS AUTO DIFF
[2016-10-20 07:30] LABS: BICARBONATE 23.1 MEQ/L (21.0-32.0); INDIRECT BILIRUBIN 0.4 MG/DL (0.0-0.8); MAGNESIUM 2.2 MG/DL (1.5-2.5); TOTAL BILIRUBIN ADULT 0.8 MG/DL (0.2-1.0)
[2016-10-20 08:00] VITALS: BP 135/84; PULSE 64; PULSE 65; RESP 18; TEMP 98.5; O2SAT 96
[2016-10-20] MEDS: SODIUM CHLOR 0.9% 1000 ML INJ 1,000 ML IV SCH (08:08)
[2016-10-20] MEDS: SODIUM CHLORIDE 0.9% FLUSH 5 ML FLUSH IVF SCH ×2 (08:08→21:11)
[2016-10-20] MEDS: LORATADINE 10 MG TAB PO SCH (08:08)
[2016-10-20 08:40] LABS: PLATELET ESTIMATE SMEAR LOW (NORMAL); PLATELET MORPHOLOGY NORMAL (NORMAL); SCAN/DIFF AUTO DIFF CONFIRMED
--- NOTE | 2016-10-20 08:45 | HHI.PR ---
Subjective Remarks Pt seen and examined. Feels well. B/C with GN rods Objective Vital Signs Vital Signs Date Time Temp Pulse Resp B/P Pulse Ox O2 Delivery O2 Flow Rate FiO2 10/20/16 03:25 99.0 65 18 119/73 96 10/19/16 23:40 98.8 68 18 120/72 97 10/19/16 20:09 63 10/19/16 19:50 99.6 67 18 133/73 99 10/19/16 16:00 98.4 66 18 118/72 99 10/19/16 12:00 98.5 62 18 107/62 97 10/19/16 09:21 97 21 I/O 10/19/16 10/19/16 10/19/16 10/20/16 10/20/16 10/20/16 07:00 15:00 23:00 07:00 15:00 23:00 Intake Total 1323 ml 1007 ml 600 ml 1390 ml Output Total 300 ml 800 ml 400 ml 1150 ml Balance 1023 ml 207 ml 200 ml 240 ml Intake Oral 240 ml 400 ml 600 ml 240 ml IV Total 1083 ml 607 ml 1150 ml Output Urine Total 300 ml 800 ml 400 ml 1150 ml # Bowel Movements 2 3 0 Result Diagram: 10/20/1615 10/20/16614 Objective Remarks Abd:soft,nt,nd Voiding well; urine clear 10/20 Abd:soft,nt,nd Voiding well; urine clear Assessment and Plan Assessment and Plan 71 y.o male s/p PNBX with fever Cultures pending 10/20 71 y.o male s/p PNBX. Path with Jessica 6 CaP B/C with GNR's Continue IV ABX PICC line placement for outpt abx. Clayton Bai DO Oct 20, 2016 08:44
[2016-10-20 12:00] VITALS: BP 120/64; PULSE 63; RESP 18; TEMP 98.9; O2SAT 97
[2016-10-20] MEDS ORDERED: CARBOXYMETHYLCELL SOD 0.5% OPTH SOLN 15 ML BTL EACH EYE PRN (15:30)
--- NOTE | 2016-10-20 15:35 | HHI.PR ---
Subjective Remarks No fever or chills. Objective Vitals Vital Signs Date Time Temp Pulse Resp B/P Pulse Ox O2 Delivery O2 Flow Rate FiO2 10/20/16 12:00 98.9 63 18 120/64 97 10/20/16 08:00 98.5 65 18 135/84 96 10/20/16 03:25 99.0 65 18 119/73 96 10/19/16 23:40 98.8 68 18 120/72 97 10/19/16 20:09 63 10/19/16 19:50 99.6 67 18 133/73 99 10/19/16 16:00 98.4 66 18 118/72 99 10/19/16 10/19/16 10/20/16 15:00 23:00 07:00 Intake Total 1007 ml 600 ml 1390 ml Output Total 800 ml 400 ml 1150 ml Balance 207 ml 200 ml 240 ml Intake Oral 400 ml 600 ml 240 ml IV Total 607 ml 1150 ml Output Urine Total 800 ml 400 ml 1150 ml # Bowel Movements 2 3 0 Result Diagram: 10/20/1615 10/20/1615 Imaging Last Impressions Chest X-Ray 10/18/16 0119 Signed Impressions: Service Date/Time: Tuesday, October 18, 2016 02:05 - CONCLUSION: Left basilar atelectasis versus developing airspace disease. Bolivar Crocker MD Objective Remarks GENERAL: This is a well-nourished, well-developed patient, in no apparent distress. CARDIOVASCULAR: Regular rate and rhythm without murmurs, gallops, or rubs. RESPIRATORY: Clear to auscultation. Breath sounds equal bilaterally. No wheezes , rales, or rhonchi. GASTROINTESTINAL: Abdomen soft, non-tender, nondistended. Normal active bowel sounds MUSCULOSKELETAL: Extremities without clubbing, cyanosis, or edema. NEURO: Alert & Oriented x4 to person, place, time, situation. Moves all ext x4 A/P Problem List: (1) Fever Status: Acute Plan: --Pt is 71 yo who underwent prostate bx 10/16 apparently for elevated psa --Last night developed rigors and high fever. he was on levaquin. also he deveploped hematuria. --He was found to have elevated wbc, cr, lft,low plts. - elevated psa s/p bx 10/16 - pathology from Bx showed cancer - statin held d/t elevated LFTs, hepatitis panel negative, and LFTs now improving - modest recovery of platelet count 84 (10/19/16) and 94 (10/20/16) - afebrile since MN 10/19/16 - blood cx (10/18/16) --> 1 bottle aerobic --> EColi 2 bottles anerobic --> gram negative rods - continue vancomycin and zosyn for now - obtain repeat blood cx x 2 - hold PICC, until repeat blood culture negative - ID, Dr. Hurtado will consult (2) Hematuria Status: Acute Plan: see above (3) ETHAN (acute kidney injury) Status: Acute Plan: see above (4) LFT elevation Status: Acute Plan: see above (5) Thrombocytopenia Status: Acute Plan: see above Problem Qualifiers (1) Fever: Qualified Code: R50.82 - Post-procedural fever Bull Cao DO Oct 20, 2016 15:35
[2016-10-20 16:00] VITALS: BP 124/69; PULSE 65; RESP 20; TEMP 98.3; O2SAT 96
[2016-10-20 19:48] VITALS: BP 127/88; PULSE 68; RESP 16; TEMP 98.8; O2SAT 96
[2016-10-20] MEDS: TEMAZEPAM 15 MG CAP PO PRN (21:20)
[2016-10-20 23:15] VITALS: BP 126/77; PULSE 61; RESP 16; TEMP 98.2; O2SAT 97
[2016-10-21] VITALS (7 sets, daily range): BP systolic 114–150; BP diastolic 71–93; PULSE 62–70; RESP 16–20; TEMP 96.6–98; O2SAT 94–98
[2016-10-21] MEDS: VANCOMYCIN INJ 1,000 MG in SODIUM CHLOR 0.9% 250 ML INJ 250 ML IV SCH (01:56)
[2016-10-21] MEDS: PIPERACIL-TAZO 3.375 GM PREMIX 50 ML IV SCH ×2 (01:56→10:43)
[2016-10-21] MEDS: LORATADINE 10 MG TAB PO SCH (09:08)
[2016-10-21] MEDS: SODIUM CHLORIDE 0.9% FLUSH 5 ML FLUSH IVF SCH ×2 (09:09→19:41)
--- NOTE | 2016-10-21 11:19 | HHI.PR ---
Subjective Remarks Pt feels well. No fever. Objective Vital Signs Vital Signs Date Time Temp Pulse Resp B/P Pulse Ox O2 Delivery O2 Flow Rate FiO2 10/21/16 07:50 97.2 63 20 131/82 98 10/21/16 05:00 98.0 62 16 131/75 95 10/21/16 01:45 96.6 68 16 127/78 96 10/20/16 23:15 98.2 61 16 126/77 97 10/20/16 19:48 98.8 68 16 127/88 96 10/20/16 16:00 98.3 65 20 124/69 96 10/20/16 12:00 98.9 63 18 120/64 97 I/O 10/20/16 10/20/16 10/20/16 10/21/16 10/21/16 10/21/16 07:00 15:00 23:00 07:00 15:00 23:00 Intake Total 1390 ml 240 ml 780 ml Output Total 1150 ml 900 ml Balance 240 ml 240 ml -120 ml Intake Oral 240 ml 240 ml 480 ml IV Total 1150 ml 300 ml Output Urine Total 1150 ml 900 ml # Voids 10 3 # Bowel Movements 0 1 3 Result Diagram: 10/20/1615 10/20/1615 Objective Remarks Abd:soft,nt,nd Voiding well; urine clear 10/20 Abd:soft,nt,nd Voiding well; urine clear 10/21 Abd:soft,nt,nd Voiding well; urine clear Assessment and Plan Assessment and Plan 71 y.o male s/p PNBX with fever Cultures pending 10/20 71 y.o male s/p PNBX. Path with [place] 6 CaP B/C with GNR's Continue IV ABX PICC line placement for outpt abx. 10/21 71 y.o male s/p PNBX with sepsis Repeat cultures pending Clayton Bai DO Oct 21, 2016 11:19
--- NOTE | 2016-10-21 14:09 | PD.ID.CON ---
History of Present Illness Service ID Consult Requested By Reason for Consult Evaluation and Mment of E.coli bacteremia, sepsis. Primary Care Physician Diagnoses: History of Present Illness is a 71-year-old male who underwent prostate biopsy on October 16, 2015 due to an elevated PSA. The night prior to admission patient started developing right rigors and high-grade fever. He was already on Levaquin at the time of his fevers and chills. He developed hematuria at some point. Patient was brought into the ER because of high-grade fevers and weakness. Upon admission patient showed signs of early sepsis with elevated WBC, fevers. Blood cultures drawn on admission as well as UA was sent. Blood cultures are positive for Escherichia coli which is resistant to Levaquin. Urine culture is pending but is positive for gram-negative organisms. Patient was started on ankle IV as well as Zosyn IV. Chest x-ray also showed possible pneumonia. The patient denies any cough and shortness of breath. Patient is Swedish-speaking and most of the history is obtained from chart as well as discussion with Dr. Cao. Blood cultures drawn on admission are positive for Escherichia coli and infectious disease is consulted for evaluation and management of Escherichia coli bacteremia as well as sepsis. Review of Systems ROS Limitations: Language Barrier (Swedish speaking) Constitutional: COMPLAINS OF: Fever, Chills Genitourinary: COMPLAINS OF: Hematuria Past Family Social History Allergies: Coded Allergies: No Known Allergies (Unverified , 10/17/16) Past Medical History elevated psa Prostate Cancer nonobstructive cad cholecystectomy Past Surgical History Needle prostate biopsy Reported Medications Reported Meds & Active Scripts Active Reported Levofloxacin 500 Mg Tab 500 Mg PO DAILY Atorvastatin (Atorvastatin Calcium) 10 Mg Tab 10 Mg PO HS Metoprolol Tartrate 25 Mg Tab 12.5 Mg PO BID Active Ordered Medications Current Medications Medications (Trade) Dose Ordered Sig/Neymar Route Start Time Stop Time Status Last Admin (Zofran Inj) 4 mg Q6H PRN IV 10/18/16 03:15 (Tylenol) 650 mg Q4H PRN PO 10/18/16 03:15 10/19/16 00:01 (NS Flush) 2 ml BID IVF 10/18/16 09:00 10/21/16 09:09 (NS Flush) 2 ml UNSCH PRN IVF 10/18/16 03:15 (Claritin) 10 mg DAILY PO 10/19/16 09:00 10/21/16 09:08 (Restoril) 15 mg HS PRN PO 10/20/16 15:30 10/20/16 21:20 Carboxymethylcellulose Sodium 1 drop 1 drop Q6H PRN EACH EYE 10/20/16 15:30 (Rocephin Inj/NS Inj) 100 ml @ 200 mls/hr Q24H IV 10/21/16 14:00 10/21/16 15:26 Family History reviewed and [place] Social History denies alcohol, smoking or IVDA Has children that are involved in care. Physical Exam Vital Signs Vital Signs Date Time Temp Pulse Resp B/P Pulse Ox O2 Delivery O2 Flow Rate FiO2 10/21/16 11:18 97.6 70 20 122/73 95 10/21/16 07:58 97 10/21/16 07:50 97.2 63 20 131/82 98 10/21/16 05:00 98.0 62 16 131/75 95 10/21/16 01:45 96.6 68 16 127/78 96 10/20/16 23:15 98.2 61 16 126/77 97 10/20/16 19:48 98.8 68 16 127/88 96 10/20/16 16:00 98.3 65 20 124/69 96 Physical Exam GENERAL: This is a well-nourished, well-developed patient, in no apparent distress. SKIN: No rashes. HEAD: Atraumatic. Normocephalic. No temporal or scalp tenderness. EYES: Pupils equal round and reactive. Extraocular motions intact. No scleral icterus. No injection or drainage. ENT: Nose without bleeding, purulent drainage or septal hematoma. Throat without erythema, tonsillar hypertrophy or exudate. Uvula midline. Airway patent. NECK: Trachea midline. Supple, nontender, no meningeal signs. CARDIOVASCULAR: HS audible. RESPIRATORY: Clear to auscultation. Breath sounds equal bilaterally. No wheezes , rales, or rhonchi. GASTROINTESTINAL: Abdomen soft, non-tender, nondistended. MUSCULOSKELETAL: Extremities without clubbing, cyanosis, or edema. No joint tenderness, effusion, or edema noted. No calf tenderness. Negative Homans sign bilaterally. NEUROLOGICAL: Awake and alert. Grossly non focal Psych: cooperative IV line sites with no e/o infection Laboratory Date/Time Procedure Status Source Growth 10/20/16 17:55 Aerobic Blood Culture - Preliminary Resulted Blood Peripheral NO GROWTH IN 1 DAY 10/20/16 17:55 Anaerobic Blood Culture - Preliminary Resulted Blood Peripheral NO GROWTH IN 1 DAY 10/18/16 01:35 Aerobic Blood Culture - Final Complete Blood Peripheral Escherichia Coli 10/18/16 01:35 Anaerobic Blood Culture - Final Complete Escherichia Coli 10/18/16 01:30 Urine Culture - Final Complete Urine Clean Catch <10,000 CFU/ML GRAM NEGATIVE SAMI Result Diagram: 10/20/16 0615 10/20/1615 Imaging Last Impressions Chest X-Ray 10/18/16 0119 Signed Impressions: Service Date/Time: Tuesday, October 18, 2016 02:05 - CONCLUSION: Left basilar atelectasis versus developing airspace disease. Bolivar Crocker MD Assessment and Plan Assessment and Plan Sepsis present on admission. Escherichia coli bacteremia resistant to Levaquin Gram-negative UTI Prostate cancer possible prostatitis Abnormal LFTs present on admission likely secondary to sepsis appear to be trending downwards Recommendations: Repeat blood cultures 2 Follow gram-negative in the urine. Check 2-D echo. It's possible patient may have had prostatitis as a cause of elevated PSA in addition to prostate cancer as fevers/sepsis started post procedure. Discontinue Zosyn IV Discontinue vancomycin IV Start ceftriaxone 2 g IV every 24 Check 2-D echo unsure how long the bacteremia could've been causing given possible prostatitis. Would like to treat Escherichia coli bacteremia with IV antibiotics and then switched to oral options for prostatitis. Prostatitis treatment is usually for 6 weeks. Also there is a plan for radiation therapy. I would recommend start of radiation therapy after the Escherichia coli bacteremia has been treated. Patient will need follow-up with infectious diseases outpatient determine clearance. No PICC till cleared by ID. Pending blood cultures. Would like to ensure clearance of bacteremia. Discussed with Dr. Cao as well as patient's daughter over the phone. Thank you for involving me in the care of this very pleasant patient. Jovita Hurtado MD Oct 21, 2016 14:08 Jovita Hurtado MD Oct 21, 2016 14:08
--- NOTE | 2016-10-21 14:29 | HHI.PR ---
Subjective Remarks No new complaints. No fever, no chills. Objective Vitals Vital Signs Date Time Temp Pulse Resp B/P Pulse Ox O2 Delivery O2 Flow Rate FiO2 10/21/16 11:18 97.6 70 20 122/73 95 10/21/16 07:58 97 10/21/16 07:50 97.2 63 20 131/82 98 10/21/16 05:00 98.0 62 16 131/75 95 10/21/16 01:45 96.6 68 16 127/78 96 10/20/16 23:15 98.2 61 16 126/77 97 10/20/16 19:48 98.8 68 16 127/88 96 10/20/16 16:00 98.3 65 20 124/69 96 10/20/16 10/20/16 10/21/16 15:00 23:00 07:00 Intake Total 240 ml 780 ml Output Total 900 ml Balance 240 ml -120 ml Intake Oral 240 ml 480 ml IV Total 300 ml Output Urine Total 900 ml # Voids 10 3 # Bowel Movements 1 3 Result Diagram: 10/20/1615 10/20/1615 Imaging Last Impressions Chest X-Ray 10/18/16 0119 Signed Impressions: Service Date/Time: Tuesday, October 18, 2016 02:05 - CONCLUSION: Left basilar atelectasis versus developing airspace disease. Bolivar Crocker MD Objective Remarks GENERAL: This is a well-nourished, well-developed patient, in no apparent distress. CARDIOVASCULAR: Regular rate and rhythm without murmurs, gallops, or rubs. RESPIRATORY: Clear to auscultation. Breath sounds equal bilaterally. No wheezes , rales, or rhonchi. GASTROINTESTINAL: Abdomen soft, non-tender, nondistended. Normal active bowel sounds MUSCULOSKELETAL: Extremities without clubbing, cyanosis, or edema. NEURO: Alert & Oriented x4 to person, place, time, situation. Moves all ext x4 A/P Problem List: (1) Fever Status: Acute Plan: - comgmt with Urology and ID --Pt is 71 yo who underwent prostate bx 10/16 apparently for elevated psa --Last night developed rigors and high fever. he was on levaquin. also he deveploped hematuria. --He was found to have elevated wbc, cr, lft,low plts. - elevated psa s/p bx 10/16 - pathology from Bx showed cancer - statin held d/t elevated LFTs, hepatitis panel negative, and LFTs now improving - modest recovery of platelet count 84 (10/19/16) and 94 (10/20/16) - afebrile since [place] 10/19/16 - blood cx (10/18/16) --> 1 bottle aerobic --> EColi 2 bottles anerobic --> Ecoli - Urine Cx (10/18/16) --> Ecoli - vancomycin and zosyn (10/18/16- 10/21/16) - Rocephin 2g IV daily (start 10/21/16) - repeat blood cx x 2 (10/20/16) --> NGTD - hold PICC, until repeat blood culture negative - appreciate input from Dr. Hurtado (2) Hematuria Status: Acute Plan: see above (3) ETHAN (acute kidney injury) Status: Acute Plan: see above (4) LFT elevation Status: Acute Plan: see above (5) Thrombocytopenia Status: Acute Plan: see above Problem Qualifiers (1) Fever: Qualified Code: R50.82 - Post-procedural fever Bull Cao DO Oct 21, 2016 14:29
[2016-10-21] MEDS: cefTRIAXone INJ 2,000 MG in SODIUM CHLORIDE 0.9% INJ 100 ML IV SCH (15:26)
[2016-10-22] VITALS (7 sets, daily range): BP systolic 112–132; BP diastolic 71–84; PULSE 68–83; RESP 16–20; TEMP 96.1–98.9; O2SAT 94–97
[2016-10-22 08:19] LABS: INDIRECT BILIRUBIN 0.4 MG/DL (0.0-0.8); TOTAL BILIRUBIN ADULT 0.6 MG/DL (0.2-1.0)
--- NOTE | 2016-10-22 09:37 | HHI.PR ---
Subjective Remarks No new complaints. Specifically NO fever or chills. Pt is tolerating PO intake. Objective Vitals Vital Signs Date Time Temp Pulse Resp B/P Pulse Ox O2 Delivery O2 Flow Rate FiO2 10/22/16 09:21 97 21 10/22/16 07:45 96.1 83 20 122/80 95 10/22/16 04:00 98.9 70 16 132/84 97 10/22/16 00:00 97.7 68 16 125/76 95 10/21/16 20:00 97.8 66 16 114/71 96 10/21/16 17:50 21 10/21/16 15:25 96.9 67 20 150/93 94 10/21/16 11:18 97.6 70 20 122/73 95 10/21/16 10/21/16 10/22/16 15:00 23:00 07:00 Intake Total 480 ml 480 ml 240 ml Output Total 400 ml 500 ml 350 ml Balance 80 ml -20 ml -110 ml Intake Oral 480 ml 480 ml 240 ml Output Urine Total 400 ml 500 ml 350 ml # Voids 5 # Bowel Movements 1 Result Diagram: 10/20/16 0615 10/20/1615 Imaging Last Impressions Chest X-Ray 10/18/16 0119 Signed Impressions: Service Date/Time: Tuesday, October 18, 2016 02:05 - CONCLUSION: Left basilar atelectasis versus developing airspace disease. Bolivar Crockre MD Objective Remarks GENERAL: This is a well-nourished, well-developed patient, in no apparent distress. CARDIOVASCULAR: Regular rate and rhythm without murmurs, gallops, or rubs. RESPIRATORY: Clear to auscultation. Breath sounds equal bilaterally. No wheezes , rales, or rhonchi. GASTROINTESTINAL: Abdomen soft, non-tender, nondistended. Normal active bowel sounds MUSCULOSKELETAL: Extremities without clubbing, cyanosis, or edema. NEURO: Alert & Oriented x4 to person, place, time, situation. 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 he was on levaquin. also he deveploped hematuria. --He was found to have elevated wbc, cr, lft,low plts. - statin held d/t elevated LFTs, hepatitis panel negative, and LFTs improving - modest recovery of platelet count 84 (10/19/16) and 94 (10/20/16) - repeat CBC in AM - afebrile since [place] 10/19/16 - blood cx (10/18/16) --> 1 bottle aerobic --> EColi 2 bottles anerobic --> Ecoli - Urine Cx (10/18/16) --> Ecoli - Repeat Bood Cx (10/20/16) --> NGTD - vancomycin and zosyn (10/18/16- 10/21/16) - Rocephin 2g IV daily (start 10/21/16) - hold PICC, until repeat blood culture negative (2) Hematuria Status: Acute Plan: see above (3) LFT elevation Status: Acute Plan: see above (4) Thrombocytopenia Status: Acute Plan: see above Bull Cao DO Oct 22, 2016 09:37 Bull Cao DO Oct 22, 2016 09:37
[2016-10-22] MEDS: LORATADINE 10 MG TAB PO SCH (09:45)
[2016-10-22] MEDS: SODIUM CHLORIDE 0.9% FLUSH 5 ML FLUSH IVF SCH ×2 (09:47→21:00)
--- NOTE | 2016-10-22 10:29 | HHI.PR ---
Subjective Remarks Pt seen and examined. C/O urinary frequency Objective Vital Signs Vital Signs Date Time Temp Pulse Resp B/P Pulse Ox O2 Delivery O2 Flow Rate FiO2 10/22/16 09:21 97 21 10/22/16 07:45 96.1 83 20 122/80 95 10/22/16 04:00 98.9 70 16 132/84 97 10/22/16 00:00 97.7 68 16 125/76 95 10/21/16 20:00 97.8 66 16 114/71 96 10/21/16 17:50 21 10/21/16 15:25 96.9 67 20 150/93 94 10/21/16 11:18 97.6 70 20 122/73 95 I/O 10/21/16 10/21/16 10/21/16 10/22/16 10/22/16 10/22/16 07:00 15:00 23:00 07:00 15:00 23:00 Intake Total 780 ml 480 ml 480 ml 240 ml Output Total 900 ml 400 ml 500 ml 350 ml Balance -120 ml 80 ml -20 ml -110 ml Intake Oral 480 ml 480 ml 480 ml 240 ml IV Total 300 ml Output Urine Total 900 ml 400 ml 500 ml 350 ml # Voids 5 # Bowel Movements 1 Result Diagram: 10/20/1661410/20/16614 Objective Remarks Abd:soft,nt,nd Voiding well; urine clear 10/20 Abd:soft,nt,nd Voiding well; urine clear 10/21 Abd:soft,nt,nd Voiding well; urine clear 10/22 Abd:soft,nt,nd Voiding frequently Assessment and Plan Assessment and Plan 71 y.o male s/p PNBX with fever Cultures pending 10/20 71 y.o male s/p PNBX. Path with [place] 6 CaP B/C with GNR's Continue IV ABX PICC line placement for outpt abx. 10/21 71 y.o male s/p PNBX with sepsis Repeat cultures pending 10/22 71 y.o male s/p PNBX with sepsis Check u/a due to urinary frequency Flomax 0.4mg QHS Cultures pending Clayton Bai DO Oct 22, 2016 10:29
[2016-10-22] MEDS ORDERED: PHENOL 1.4% SOLN 180 ML BTL OROPHARYNG PRN (10:45)
[2016-10-22] MEDS: TAMSULOSIN HCL 0.4 MG CAP PO SCH (12:30)
[2016-10-22 13:44] LABS: BLOOD, URINE SMALL (NEG); COMMENT (UR) CULT NOT INDICATED; CULTURE IF INDICATED CULT NOT INDICATED; GLUCOSE,URINE NEG (NEG); KETONE, URINE NEG (NEG); NITRITE,URINE NEG (NEG); URINE COLOR COLORLESS (YELLW/STRAW)
[2016-10-22] MEDS: cefTRIAXone INJ 2,000 MG in SODIUM CHLORIDE 0.9% INJ 100 ML IV SCH (16:01)
--- NOTE | 2016-10-22 16:30 | EC ---
Study Study Date:10/22/2016 STUDY CONCLUSIONS SUMMARY - Procedure narrative: Transthoracic echocardiography. Image quality was fair. The study was technically limited due to poor acoustic window availability. - Left ventricle: The cavity size was normal. Wall thickness was increased in a pattern of moderate LVH. There was concentric hypertrophy. Systolic function was normal. The estimated ejection fraction was in the range of 60% to 65%. Although no diagnostic regional wall motion abnormality was identified, this possibility cannot be completely excluded on the basis of this study. Doppler parameters are consistent with abnormal left ventricular relaxation (grade 1 diastolic dysfunction). If LV function is below 40, please consider prescribing an ACEI or ARB or document rationale for non-use. PROCEDURE DATA STUDY STATUS: Elective. Procedure: Transthoracic echocardiography. Image quality was fair. The study was technically limited due to poor acoustic window availability. Scanning was performed from the parasternal, apical, and subcostal acoustic windows. Study completion: The patient tolerated the procedure well. Transthoracic echocardiography. M-mode, complete 2D, complete spectral Doppler, and color Doppler. Patient status: Inpatient. CARDIAC ANATOMY LEFT VENTRICLE: The cavity size was normal. Wall thickness was increased in a pattern of moderate LVH. There was concentric hypertrophy. Systolic function was normal. The estimated ejection fraction was in the range of 60% to 65%. Although no diagnostic regional wall motion abnormality was identified, this possibility cannot be completely excluded on the basis of this study. Doppler parameters are consistent with abnormal left ventricular relaxation (grade 1 diastolic dysfunction). AORTIC VALVE: The valve appears to be grossly normal. [place]. Doppler: There was no stenosis. No significant regurgitation. Mean gradient: 3mm Hg (S). MITRAL VALVE: The valve appears to be grossly normal. Doppler: There was no evidence for stenosis. No significant regurgitation. LEFT ATRIUM: The atrium was at the upper limits of normal in size. RIGHT VENTRICLE: Not well visualized. PULMONIC VALVE: Not well visualized. Doppler: There was no evidence for stenosis. No significant regurgitation. TRICUSPID VALVE: Not well visualized. Doppler: There was no evidence for stenosis. PERICARDIUM: There was no pericardial effusion. BASIC MEASUREMENTS ADULT NORMAL Left ventricle LV internal dimension, ED, chordal level, 45.1 mm 43-52 PLAX LV internal dimension, ES, chordal level, 31.5 mm 23-38 PLAX Fractional shortening, chordal level, PLAX 30 % >29 LV posterior wall thickness, ED 13.5 mm IVS/LVPW ratio, ED 1.03 <1.3 Ventricular septum Septal thickness, ED 13.9 mm Aortic valve Leaflet separation 20 mm 15-26 BASIC MEASUREMENTS ADULT NORMAL Aortic valve Leaflet separation 20 mm 15-26 Aorta Root diameter, ED 33 mm 20-37 Left atrium Anterior-posterior dimension, ES 40 mm 19-40 LA/aortic root ratio 1.21 DOPPLER MEASUREMENTS ADULT NORMAL Aortic valve Peak velocity, S 130 cm/s Mean velocity, S 85.5 cm/s VTI, S 25 cm Mean gradient, S 3 mm Hg Pulmonic valve Peak velocity, S 86.9 cm/s LEGEND: Mean values are shown as u=mean value. Asterisk (*) robbins values outside specified normal range. Prepared and signed by Koffi Peterson [id number]
[2016-10-22] MEDS: ACETAMINOPHEN 325 MG TAB PO PRN (17:22)
[2016-10-22] MEDS: TEMAZEPAM 15 MG CAP PO PRN (21:08)
[2016-10-23] VITALS: BP 115/68; PULSE 86; RESP 16; TEMP 97.7; O2SAT 95
[2016-10-23 04:00] VITALS: BP 123/70; PULSE 75; RESP 16; TEMP 97.3; O2SAT 96
[2016-10-23 07:13] LABS: AUTOMATED NEUTROPHIL # 3.8 TH/MM3 (1.8-7.7); BASOPHIL # 0.1 TH/MM3 (0-0.2); EOSINOPHIL # 0.4 TH/MM3 (0-0.4); EOSINOPHIL % 5.4 % (0.0-4.0); HEMATOCRIT 38.1 % (39.0-51.0); HEMO FLAGS DIFF FINAL; LYMPH % 25.8 % (9.0-44.0); LYMPHOCYTE # 1.7 TH/MM3 (1.0-4.8); MEAN CELL VOLUME 89.2 FL (80.0-100.0); MEAN CORPUSCULAR HEMOGLOBIN 30.7 PG (27.0-34.0); MEAN CORPUSCULAR HGB CONC 34.4 % (32.0-36.0); MONO % 10.9 % (0.0-8.0); NEUT % 56.9 % (16.0-70.0); PLATELET COUNT 176 TH/MM3 (150-450); RED BLOOD COUNT 4.27 MIL/MM3 (4.50-5.90); RED CELL DISTRIBUTION WIDTH 13.9 % (11.6-17.2); WHITE BLOOD COUNT 6.7 TH/MM3 (4.0-11.0)
[2016-10-23 08:00] VITALS: BP 129/74; PULSE 99; RESP 18; TEMP 98.4; O2SAT 94
[2016-10-23] MEDS: TAMSULOSIN HCL 0.4 MG CAP PO SCH (10:06)
[2016-10-23] MEDS: LORATADINE 10 MG TAB PO SCH (10:06)
[2016-10-23] MEDS: SODIUM CHLORIDE 0.9% FLUSH 5 ML FLUSH IVF SCH ×2 (10:07→20:27)
--- NOTE | 2016-10-23 10:54 | HHI.PR ---
Subjective Remarks Pt seen and examined. Voiding better on Flomax. U/A negative. Objective Vital Signs Vital Signs Date Time Temp Pulse Resp B/P Pulse Ox O2 Delivery O2 Flow Rate FiO2 10/23/16 08:00 98.4 99 18 129/74 94 10/23/16 04:00 97.3 75 16 123/70 96 10/23/16 00:00 97.7 86 16 115/68 95 10/22/16 20:00 97.1 71 16 115/71 94 10/22/16 15:50 97.6 73 20 118/76 94 10/22/16 11:30 97.0 73 20 112/72 96 I/O 10/22/16 10/22/16 10/22/16 10/23/16 10/23/16 10/23/16 07:00 15:00 23:00 07:00 15:00 23:00 Intake Total 240 ml 240 ml 960 ml 240 ml Output Total 350 ml 200 ml 950 ml Balance -110 ml 40 ml 960 ml -710 ml Intake Oral 240 ml 240 ml 960 ml 240 ml Output Urine Total 350 ml 200 ml 950 ml # Voids 6 3 # Bowel Movements 1 1 Result Diagram: 10/23/16 0557 10/20/16 0615 Objective Remarks Abd:soft,nt,nd Voiding well; urine clear 10/20 Abd:soft,nt,nd Voiding well; urine clear 10/21 Abd:soft,nt,nd Voiding well; urine clear / Abd:soft,nt,nd Voiding frequently 2/3 Abd:soft,nt,nd Voiding well; urine clear Assessment and Plan Assessment and Plan 71 y.o male s/p PNBX with fever Cultures pending 10/20 71 y.o male s/p PNBX. Path with [place] 6 CaP B/C with GNR's Continue IV ABX PICC line placement for outpt abx. 10/21 71 y.o male s/p PNBX with sepsis Repeat cultures pending 10/22 71 y.o male s/p PNBX with sepsis Check u/a due to urinary frequency Flomax 0.4mg QHS Cultures pending 10/23 71 y.o male s/p PNBX with sepsis Flomax as outpt F/U with Clayton Beadren DO Oct 23, 2016 10:54
[2016-10-23 12:00] VITALS: BP_SYST 123; BP_SYST 125; BP_DIAS 80; BP_DIAS 87; PULSE 86; RESP 16; TEMP 97.4; O2SAT 98
[2016-10-23] MEDS: cefTRIAXone INJ 2,000 MG in SODIUM CHLORIDE 0.9% INJ 100 ML IV SCH (13:53)
--- NOTE | 2016-10-23 15:15 | HHI.PR ---
Subjective Remarks No new complaints. Objective Vitals Vital Signs Date Time Temp Pulse Resp B/P Pulse Ox O2 Delivery O2 Flow Rate FiO2 10/23/16 12:00 97.4 86 16 123/80 98 10/23/16 08:00 98.4 99 18 129/74 94 10/23/16 04:00 97.3 75 16 123/70 96 10/23/16 00:00 97.7 86 16 115/68 95 10/22/16 20:00 97.1 71 16 115/71 94 10/22/16 15:50 97.6 73 20 118/76 94 10/22/16 10/22/16 10/23/16 15:00 23:00 07:00 Intake Total 240 ml 960 ml 240 ml Output Total 200 ml 950 ml Balance 40 ml 960 ml -710 ml Intake Oral 240 ml 960 ml 240 ml Output Urine Total 200 ml 950 ml # Voids 6 3 # Bowel Movements 1 1 Result Diagram: 10/23/16 0557 10/20/16 0615 Imaging Last Impressions Chest X-Ray 10/18/16 0119 Signed Impressions: Service Date/Time: Tuesday, October 18, 2016 02:05 - CONCLUSION: Left basilar atelectasis versus developing airspace disease. Bolivar Crocker MD Objective Remarks GENERAL: This is a well-nourished, well-developed patient, in no apparent distress. CARDIOVASCULAR: Regular rate and rhythm without murmurs, gallops, or rubs. RESPIRATORY: Clear to auscultation. Breath sounds equal bilaterally. No wheezes , rales, or rhonchi. GASTROINTESTINAL: Abdomen soft, non-tender, nondistended. Normal active bowel sounds MUSCULOSKELETAL: Extremities without clubbing, cyanosis, or edema. NEURO: Alert & Oriented x4 to person, place, time, situation. 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 he was on levaquin. also he deveploped hematuria. --He was found to have elevated wbc, cr, lft,low plts. - statin held d/t elevated LFTs, hepatitis panel negative, and LFTs improving - modest recovery of platelet count 84 (10/19/16) and 94 (10/20/16) - repeat CBC in AM - afebrile since [place] 10/19/16 - blood cx (10/18/16) --> 1 bottle aerobic --> EColi 2 bottles anerobic --> Ecoli - Urine Cx (10/18/16) --> Ecoli - Repeat Bood Cx (10/20/16) --> NGTD - vancomycin and zosyn (10/18/16- 10/21/16) - Rocephin 2g IV daily (start 10/21/16) - hold PICC, until repeat blood culture negative - anticipate d/c to home 10/24/16 (2) Hematuria Status: Acute Plan: see above (3) LFT elevation Status: Acute Plan: see above (4) Thrombocytopenia Status: Acute Plan: see above Bull Cao DO Oct 23, 2016 15:15
[2016-10-23 16:00] VITALS: BP 123/70; PULSE 85; RESP 18; TEMP 97.4; O2SAT 96
--- NOTE | 2016-10-23 18:05 | HHI.IDPN ---
Subjective Subjective Remarks is a 71-year-old male who underwent prostate biopsy on October 16, 2015 due to an elevated PSA. ID following for E.coli bacteremia and E.coli UTI. Delayed entry patient seen at 9 am. Overnight events reviewed No fever No rash No diarrhea Antibiotics Ceftriaxone IV Lines Line sites with no e/o bacteremia Past Medical History reviewed Allergies: Coded Allergies: No Known Allergies (Unverified , 10/17/16) Objective . Vital Signs Date Time Temp Pulse Resp B/P Pulse Ox O2 Delivery O2 Flow Rate FiO2 10/23/16 16:00 97.4 85 18 123/70 96 10/23/16 12:00 97.4 86 16 123/80 98 10/23/16 08:00 98.4 99 18 129/74 94 10/23/16 04:00 97.3 75 16 123/70 96 10/23/16 00:00 97.7 86 16 115/68 95 10/22/16 20:00 97.1 71 16 115/71 94 10/22/16 10/22/16 10/23/16 15:00 23:00 07:00 Intake Total 240 ml 960 ml 240 ml Output Total 200 ml 950 ml Balance 40 ml 960 ml -710 ml Intake Oral 240 ml 960 ml 240 ml Output Urine Total 200 ml 950 ml # Voids 6 3 # Bowel Movements 1 1 . Laboratory Tests Test 10/23/16 05:57 White Blood Count 6.7 TH/MM3 Red Blood Count 4.27 MIL/MM3 Hemoglobin 13.1 GM/DL Hematocrit 38.1 % Mean Corpuscular Volume 89.2 FL Mean Corpuscular Hemoglobin 30.7 PG Mean Corpuscular Hemoglobin 34.4 % Concent Red Cell Distribution Width 13.9 % Platelet Count 176 TH/MM3 Mean Platelet Volume 8.3 FL Neutrophils (%) (Auto) 56.9 % Lymphocytes (%) (Auto) 25.8 % Monocytes (%) (Auto) 10.9 % Eosinophils (%) (Auto) 5.4 % Basophils (%) (Auto) 1.0 % Neutrophils # (Auto) 3.8 TH/MM3 Lymphocytes # (Auto) 1.7 TH/MM3 Monocytes # (Auto) 0.7 TH/MM3 Eosinophils # (Auto) 0.4 TH/MM3 Basophils # (Auto) 0.1 TH/MM3 CBC Comment DIFF FINAL Differential Comment Laboratory Tests Test 10/22/16 06:56 Total Bilirubin 0.6 MG/DL Direct Bilirubin 0.2 MG/DL Indirect Bilirubin 0.4 MG/DL Aspartate Amino Transf 54 U/L (AST/SGOT) Alanine Aminotransferase 84 U/L (ALT/SGPT) Alkaline Phosphatase 153 U/L Total Protein 6.9 GM/DL Albumin 2.7 GM/DL Imaging Last Impressions Chest X-Ray 10/18/16 0119 Signed Impressions: Service Date/Time: Tuesday, October 18, 2016 02:05 - CONCLUSION: Left basilar atelectasis versus developing airspace disease. Bolivar Crocker MD Physical Exam GENERAL: This is a well-nourished, well-developed patient, in no apparent distress. SKIN: No rashes. HEAD: Atraumatic. Normocephalic. No temporal or scalp tenderness. EYES: Pupils equal round and reactive. Extraocular motions intact. No scleral icterus. No injection or drainage. ENT: Nose without bleeding, purulent drainage or septal hematoma. Throat without erythema, tonsillar hypertrophy or exudate. Uvula midline. Airway patent. NECK: Trachea midline. Supple, nontender, no meningeal signs. CARDIOVASCULAR: HS audible. RESPIRATORY: Clear to auscultation. Breath sounds equal bilaterally. No wheezes , rales, or rhonchi. GASTROINTESTINAL: Abdomen soft, non-tender, nondistended. MUSCULOSKELETAL: Extremities without clubbing, cyanosis, or edema. No joint tenderness, effusion, or edema noted. No calf tenderness. Negative Homans sign bilaterally. NEUROLOGICAL: Awake and alert. Grossly non focal Psych: cooperative IV line sites with no e/o infection Assessment & Plan Remarks Sepsis present on admission. Escherichia coli bacteremia resistant to Levaquin Gram-negative UTI Prostate cancer possible prostatitis Abnormal LFTs present on admission likely secondary to sepsis appear to be trending downwards Recommendations: Follow repeat blood cultures. 2D ECHO negative. Continue Ceftriaxone 2 g IV every 24hrs. It's possible patient may have had prostatitis as a cause of elevated PSA in addition to prostate cancer as fevers/sepsis started post procedure. Would like to treat Escherichia coli bacteremia with IV antibiotics and then switched to oral options for prostatitis. Prostatitis treatment is usually for 6 weeks. Also there is a plan for radiation therapy. I would recommend start of radiation therapy after the Escherichia coli bacteremia has been treated. Patient will need follow-up with infectious diseases outpatient determine clearance. Ok to place PICC at 72 hrs of negative culture and DC home. Roz Gimenez blood cultures to be followed by PCP or [facility] and if they are positive he will need readmission for further workup. Recommend follow up with Dr.Reba Redd in 10 days to switch from IV to oral and follow thru with weekly labs and PSA. Infusion orders are in chart. roz Gimenez. d/w Training Facilitator Will sign off please call back if any change in clinical condition or questions. Jovita Hurtado MD Oct 23, 2016 18:05
[2016-10-23] MEDS ORDERED: CEFT2INJ IV (18:13)
[2016-10-23] MEDS ORDERED: EPIN1INJ21 SQ (18:13)
[2016-10-23] MEDS ORDERED: EPIN1INJ21 IV PUSH (18:13)
[2016-10-23] MEDS ORDERED: SOLU250I IV PUSH (18:13)
--- NOTE | 2016-10-23 18:17 | HHI.FF ---
cc: Kiara Agustin MD Infusion Therapy Location of Infusion Therapy: [facility] Infusion Therapy Order Patient Information Patient Weight 73 kg Diagnosis: Coded Allergies: No Known Allergies (Unverified , 10/17/16) Administer Medication Ceftriaxone 2 grams IV q 24 hours Start Treatment: Oct 23, 2016 Stop Treatment: Nov 03, 2016 Additional Information Venous access: PICC Line, Other (Midline) Additional Instructions [x] Peripheral flush and dressing changes per protocol [x] Implanted port and central front line supervisor: * Implanted port: 10 ml Normal Saline followed by 5 ml Heparin 100 units/ml Heparin flush after each use and monthly to maintain. [] May leave port accessed during therapy. [] May leave peripheral site accessed for duration of therapy. [x] If patient has SOB or respiratory distress, check oxygen saturation. If less than 90% or clinical signs of respiratory distress, administer oxygen at 2 L/min. via nasal cannula and notify physician. [x] Anaphylaxis/Reaction orders: * Stop infusion. * Keep IV line open with saline flush. * Notify physician. * Monitor vital signs every 15 minutes until symptoms resolve. * Check Oxygen saturation; Oxygen at 2 L/min. via nasal cannula if less than 90% or clinical signs of respiratory distress. * Administer diphenhydramine (Benadryl) 25 mg IV STAT, (unless patient has received as pre-med). May repeat once, if necessary. * Solu-Cortef 250 mg IVP over 30-60 seconds, use 100 mg vials for each dissolution. * Epinephrine (1mg/1 ml) 0.3 mg subcutaneously or IVP now with any signs of respiratory distress. * Check with physician for new additional pre-med orders if patient is re- challenged or re-treated. [x] May remove PICC line when treatment complete, after confirming with Physician. [x] If the patient is admitted to the hospital, the ED, or transferred via [facility] , complete transfer form including medication reconciliation order sheet. Laboratory Tests Weekly Labs: CBC w/diff, Creatinine, CRP, LFT's (Hepatic function test) (PSA) Additional Information Please draw weekly labs, and fax to number below. Call with abnormals, change in clinical condition or problems to: Dr.Reba Agustin or Teresa or Kendal GALAVIZ Physician Follow up appt: Patient to schedule follow up appt with Dr.Reba Agustin within ..... weeks post discharge. Follow up with PCP Follow up with other MDs as planned. Counseling: Counseled about medication side effects Counseled about PICC line care and hand hygiene. Jovita Hurtado MD Oct 23, 2016 18:17
[2016-10-23 20:00] VITALS: BP 141/81; PULSE 89; RESP 18; TEMP 97.7; O2SAT 96
[2016-10-23] MEDS: TEMAZEPAM 15 MG CAP PO PRN (20:33)
[2016-10-24] VITALS: BP 121/74; PULSE 82; RESP 18; TEMP 98.1; O2SAT 96
[2016-10-24 04:00] VITALS: BP 114/74; PULSE 78; RESP 16; TEMP 97.5; O2SAT 95
[2016-10-24] MEDS: SODIUM CHLORIDE 0.9% FLUSH 5 ML FLUSH IVF SCH (07:45)
[2016-10-24] MEDS: LORATADINE 10 MG TAB PO SCH (07:45)
[2016-10-24] MEDS: TAMSULOSIN HCL 0.4 MG CAP PO SCH (07:45)
[2016-10-24 08:00] VITALS: BP 111/78; PULSE 92; RESP 18; TEMP 97.4; O2SAT 94
--- NOTE | 2016-10-24 09:05 | HHI.FF ---
Face to Face Verification Diagnosis: (1) Bacteremia due to Escherichia coli (2) Acute prostatitis (3) LFT elevation (4) Thrombocytopenia (5) Hematuria (6) Fever (7) Sepsis Home Health Nursing Order: Medical education Signs/symptoms of disease process Medication education-adverse effect Nursing assessment with vital signs IV medication administration Instructions: IV Rocephin 2g daily x 10d, then further orders per Dr. Redd, Infectious Disease I have seen patient Ihsan Valenzuela on 10/24/16. My clinical findings support the need for the requested home health care services because: Ltd mobility - disease progression Deconditioned w/ increased weakness Med compliance is questionable Limited ability to care for self Need for psychosocial assistance Infection w/ risk of complications I certify that my clinical findings support that this patient is homebound because: Post-op weakness Unsafe to leave home unassisted Need for psychosocial assistance Unable to use public transportation Bull Cao DO Oct 24, 2016 09:05
[2016-10-24] MEDS ORDERED: LORA-361 PO (09:16)
[2016-10-24] MEDS ORDERED: TAMS5CAP PO (09:16)
[2016-10-24] MEDS ORDERED: REFR0.5D4 EACH EYE (09:16)
--- NOTE | 2016-10-24 09:31 | HHI.PR ---
Subjective Remarks No new complaints. No fever, No chills. Pt is eager for discharge to home. Objective Vitals Vital Signs Date Time Temp Pulse Resp B/P Pulse Ox O2 Delivery O2 Flow Rate FiO2 10/24/16 04:00 97.5 78 16 114/74 95 10/24/16 00:00 98.1 82 18 121/74 96 10/23/16 20:00 97.7 89 18 141/81 96 10/23/16 16:00 97.4 85 18 123/70 96 10/23/16 12:00 97.4 86 16 123/80 98 10/23/16 10/23/16 10/24/16 15:00 23:00 07:00 Intake Total 480 ml 110 ml 480 ml Output Total 700 ml Balance 480 ml 110 ml -220 ml Intake Oral 480 ml 480 ml IV Total 110 ml Output Urine Total 700 ml # Voids 3 5 # Bowel Movements 1 1 Result Diagram: 10/23/16 0557 10/20/16 0615 Imaging Last Impressions Chest X-Ray 10/18/16 0119 Signed Impressions: Service Date/Time: Tuesday, October 18, 2016 02:05 - CONCLUSION: Left basilar atelectasis versus developing airspace disease. Bolivar Crocker MD Objective Remarks GENERAL: This is a well-nourished, well-developed patient, in no apparent distress. CARDIOVASCULAR: Regular rate and rhythm without murmurs, gallops, or rubs. RESPIRATORY: Clear to auscultation. Breath sounds equal bilaterally. No wheezes , rales, or rhonchi. GASTROINTESTINAL: Abdomen soft, non-tender, nondistended. Normal active bowel sounds MUSCULOSKELETAL: Extremities without clubbing, cyanosis, or edema. 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 he was on levaquin. also he deveploped hematuria. --He was found to have elevated wbc, cr, lft,low plts. - statin held d/t elevated LFTs, hepatitis panel negative, and LFTs nearly normalized - consider restarting statin in 1 month outpt - recovery of platelet count 84 (10/19/16) 94 (10/20/16), 176 (10/23/16) - afebrile since [place] 10/19/16 - blood cx (10/18/16) --> 1 bottle aerobic --> EColi 2 bottles anerobic --> Ecoli - Urine Cx (10/18/16) --> Ecoli - Repeat Bood Cx (10/20/16) --> NGTD at 3d, I will continue to follow results after discharge - vancomycin and zosyn (10/18/16- 10/21/16) - Rocephin 2g IV daily (start 10/21/16) - place PICC line today 10/24/16 - discharge to home today after PICC placement and home Rocephin arranged by Case Mgmt - Pt to follow up with ID outpt, Dr. Kiara Agustin in 10d - Possible underlying prostatitis. Pt to receive PO abx for prostatitis after IV rocephin for 6 weeks treatment - Pt to f/u with his Urologist Dr. Tan, RE: [place] Grade 6 Prostate Cancer (2) Hematuria Status: Acute Plan: see above (3) LFT elevation Status: Acute Plan: see above (4) Thrombocytopenia Status: Acute Plan: see above Bull Cao DO Oct 24, 2016 09:31
--- NOTE | 2016-10-24 09:38 | HHI.DS ---
Discharge Summary Admission Date Oct 18, 2016 at 03:15 Discharge Date: Oct 24, 2016 Admitting Diagnosis Hematuria. Sepsis. Renal sufficiency. (1) Bacteremia due to Escherichia coli Diagnosis: Principal (2) Hematuria Diagnosis: Principal (3) LFT elevation Diagnosis: Principal (4) Thrombocytopenia Diagnosis: [facility] Dr. Clayton Bai, Urology Dr. Jovita Hurtado, Infectious Diesea Brief History Pt is 71 yo who underwent prostate bx 10/16 apparently for elevated psa Last night developed rigors and high fever. he was on levaquin. also he deveploped hematuria. He was found to have elevated wbc, cr, lft,low plts.currently his hematuria is resolving. Given vanco and zosyn in ED. ED thought possibly pna based on cxr. pt denies cough/sob. did have some sneezing this AM and family says he was out in cold rain last night. Pt speaks mostly burundian. his daughter was on phone interpreting and also some family in room interpreting. denies etoh use or cigarette use. CBC/BMP: 10/23/16 0557 10/20/16 0615 Significant Findings Laboratory Tests Test 10/22/16 10/22/16 10/23/16 06:56 13:05 05:57 Aspartate Amino Transf 54 U/L (15-37) (AST/SGOT) Alanine Aminotransferase 84 U/L (12-78) (ALT/SGPT) Alkaline Phosphatase 153 U/L (45-117) Albumin 2.7 GM/DL (3.4-5.0) Urine Occult Blood SMALL (NEG) Red Blood Count 4.27 MIL/MM3 (4.50-5.90) Hematocrit 38.1 % (39.0-51.0) Monocytes (%) (Auto) 10.9 % (0.0-8.0) Eosinophils (%) (Auto) 5.4 % (0.0-4.0) PE at Discharge GENERAL: This is a well-nourished, well-developed patient, in no apparent distress. CARDIOVASCULAR: Regular rate and rhythm without murmurs, gallops, or rubs. RESPIRATORY: Clear to auscultation. Breath sounds equal bilaterally. No wheezes , rales, or rhonchi. GASTROINTESTINAL: Abdomen soft, non-tender, nondistended. Normal active bowel sounds MUSCULOSKELETAL: Extremities without clubbing, cyanosis, or edema. 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 he was on levaquin. also he deveploped hematuria. --He was found to have elevated wbc, cr, lft,low plts. - Transaminases nearly normalized - statin held d/t elevated LFTs, hepatitis panel negative, would resume statin in 4-6 weeks outpt and then again repeat LFTs in 1 month - recovery of platelet count 84 (10/19/16) 94 (10/20/16), 176 (10/23/16) - afebrile since [place] 10/19/16 - blood cx (10/18/16) --> 1 bottle aerobic --> EColi 2 bottles anerobic --> Ecoli - Urine Cx (10/18/16) --> Ecoli - Repeat Bood Cx (10/20/16) --> No growth at 3d, I will continue to follow cx results - vancomycin and zosyn (10/18/16- 10/21/16) - Rocephin 2g IV daily (start 10/21/16) - Intermediate resistance to PO levaquin - Place PICC - Discharge to home on IV Rocephin 2g daily x 10d, once arrangement made - f/u with ID outpt, Dr. Kiara Agustin in 10d. - Pt will likely require treatment for prostatitis by PO x 6 weeks. - Pt to f/u with his Urologist Dr. Higinio Tan, RE: [place] Grade 6 Prostate CA, for treatment options (2) Hematuria Status: Acute Plan: see above (3) LFT elevation Status: Acute Plan: see above (4) Thrombocytopenia Status: Acute Plan: see above Pt Condition on Discharge: Stable Discharge Disposition: Disch w/ Home Health Serv Discharge Instructions DIET: Follow Instructions for: As Tolerated, No Restrictions Activities you can perform: Regular-No Restrictions Follow up Referrals: Appointment for Follow Up - 1 Week @ [facility] with Kiara Agustin MD PCP Follow-up - [address] Selam Figueroa Urology - 2 Weeks with Higinio Tan MD New Medications: Ceftriaxone Inj (Ceftriaxone Inj) 2 Gm Inj 2 GM IV Q24H E.coli bacteremia Prostatitis Days 10 Ref 0 VIAL Epinephrine Inj (Epinephrine Inj) 1 Mg/Ml Inj 0.3 MG IV PUSH ONCE PRN ALLERGIC REACTION #1 VIAL Epinephrine Inj (Epinephrine Inj) 1 Mg/Ml Inj 0.3 MG SQ ONCE Give with any signs of respiratory distress. PRN ALLERGIC REACTION #1 VIAL Hydrocortisone Inj (Solu-Cortef Inj) 250 Mg Inj 250 MG IV PUSH ONCE Give over 30-60 seconds. PRN ALLERGIC REACTION #1 Ref 0 VIAL Carboxymethylcellulose Sodium Opth Drops (Refresh Tears Opth Drops) 0.5% Drops 1 DROP EACH EYE Q6H PRN dry eyes Days 30 Ref 0 BOTTLE Loratadine (Claritin) 10 Mg Tab 10 MG PO DAILY nasal allergies Days 30 Ref 0 TAB Tamsulosin (Flomax) 0.4 Mg Cap 0.4 MG PO DAILY prostate cancer #30 Ref 0 CAP Discontinued Medications: Atorvastatin (Atorvastatin) 10 Mg Tab 10 MG PO HS Cholesterol Management #30 Ref 0 TAB Levofloxacin (Levofloxacin) 500 Mg Tab 500 MG PO DAILY Infection #3 Ref 0 TAB Metoprolol Tartrate (Metoprolol Tartrate) 25 Mg Tab 12.5 MG PO BID #60 Ref 0 TAB Bull Cao DO Oct 24, 2016 09:38
--- NOTE | 2016-10-24 09:43 | HHI.DCPOC ---
Discharge Care Plan Diagnosis: (1) Bacteremia due to Escherichia coli (2) Prostate cancer (3) Dry eye syndrome (4) Sepsis (5) Acute prostatitis (6) LFT elevation (7) ETHAN (acute kidney injury) (8) Thrombocytopenia (9) Hematuria (10) Fever Goals to Promote Your Health * To prevent worsening of your condition and complications * To maintain your health at the optimal level Directions to Meet Your Goals Take your medications as prescribed Follow your dietary instruction Follow activity as directed Keep your appointments as scheduled Take your immunizations and boosters as scheduled If your symptoms worsen call your PCP, if no PCP go to Urgent Care Center or Emergency Room Smoking is Dangerous to Your Health. Avoid second hand smoke Call the 24-hour hour crisis hotline for domestic abuse at Bull Cao DO Oct 24, 2016 09:43
[2016-10-24 12:00] VITALS: BP 130/72; PULSE 84; RESP 16; TEMP 97.6; O2SAT 97
[2016-10-24] MEDS: cefTRIAXone INJ 2,000 MG in SODIUM CHLORIDE 0.9% INJ 100 ML IV SCH (14:44)
== END 2016-10-24 17:02 | disposition home health service (06) | DRG 728 ==
LOC: NEPE 23:36 → NEDA 10-18 03:15 → N04B 10-18 05:44 → HOCB 10-21 01:45
PROVIDERS: ADMIT Hospitalist; ATTEND Hospitalist
PROC: 05HC33Z Insertion of Infusion Device into Left Basilic Vein, Percutaneous Approach (ICD-10-PCS; principal; 2016-10-24)
PROC: B54NZZA Ultrasonography of Left Upper Extremity Veins, Guidance (ICD-10-PCS; 2016-10-24)
DX: N41.9 Inflammatory disease of prostate, unspecified (principal); N17.9 Acute kidney failure, unspecified; D69.6 Thrombocytopenia, unspecified; R78.81 Bacteremia; C61 Malignant neoplasm of prostate; B96.20 Unspecified Escherichia coli [E. coli] as the cause of diseases classified elsewhere; I10 Essential (primary) hypertension; E78.00 Pure hypercholesterolemia, unspecified; R31.9 Hematuria, unspecified; R79.89 Other specified abnormal findings of blood chemistry; I25.10 Atherosclerotic heart disease of native coronary artery without angina pectoris
CPT/HCPCS: 36569; 71010; 76937; 80048; 80053; 80074; 80076; 81001; 83605; 83735; 84155; 85025; 85610; 85730; 87040; 87077; 87086; 87186; 87205; 88305; 93005; 93306; 96365; J0131; J0696; J1956; J2543; J3370; J7030; J7050; J7120